=== PATIENT | male | born 1995 | race African-American/Black ===

== ENCOUNTER 2018-03-02 04:52 | Emergency (ER) | payer SELFPAY ==
[~2018-03-02] VITALS: Ht 167.6 cm; Wt 54.4 kg
[2018-03-02 04:59] VITALS: Ht 167.6 cm; Wt 54.4 kg
[2018-03-02 05:54] LABS: APPEARANCE HAZY (CLEAR); BILIRUBIN NEGATIVE (NEGATIVE); COLOR YELLOW (YELLOW); GLUCOSE NEGATIVE (NEGATIVE); KETONE NEGATIVE (NEGATIVE); NITRITE NEGATIVE (NEGATIVE); PROTEIN NEGATIVE (NEGATIVE); UROBILINOGEN NORMAL (NORMAL)
[2018-03-02 05:55] LABS: BACTERIA FEW /hpf (NONE SEEN); EPITHELIAL CELLS 0-5 /hpf (0-5); RED CELLS - URINE 0-5 /hpf (0-5)
[2018-03-02 07:17] VITALS: BP 144/83
[2018-03-03] MEDS ORDERED: DOXYCYCLINE HY100 M2 PO (12:43)
[2018-03-03] MEDS ORDERED: NAPROSYN500 MG PO (12:43)
[2018-03-04 12:17] LABS: CHLAMYDIA TRACHOMATIS, NAA Positive (Negative)
== END 2018-03-02 07:18 | disposition home or self-care (01) ==
LOC: D.ER 04:52
PROVIDERS: Family Medicine
DX: N34.2 Other urethritis (principal)

== ENCOUNTER 2018-03-03 11:12 | Emergency (ER) | payer MEDICAID ==
[~2018-03-03] VITALS: Ht 167.6 cm; Wt 63.6 kg
[2018-03-03 11:18] VITALS: Ht 167.6 cm; Wt 63.6 kg
[2018-03-03 12:13] LABS: APPEARANCE CLEAR (CLEAR); BILIRUBIN NEGATIVE (NEGATIVE); COLOR YELLOW (YELLOW); EPITHELIAL CELLS OCC /hpf (0-5); GLUCOSE NEGATIVE (NEGATIVE); KETONE NEGATIVE (NEGATIVE); NITRITE NEGATIVE (NEGATIVE); PROTEIN NEGATIVE (NEGATIVE); SPECIFIC GRAVITY 1.015 (1.005-1.020); UROBILINOGEN NORMAL (NORMAL); WHITE CELLS - URINE 0-5 /hpf (0-5)
[2018-03-03] MEDS ORDERED: DOXYCYCLINE HY100 M2 PO (12:43)
[2018-03-03] MEDS ORDERED: NAPROSYN500 MG PO (12:43)
[2018-03-03 13:36] VITALS: BP 127/65
[2018-03-05 21:06] LABS: CHLAMYDIA TRACHOMATIS, NAA Positive (Negative)
== END 2018-03-03 13:36 | disposition home or self-care (01) ==
LOC: D.ER 11:12
PROVIDERS: Family Medicine
DX: N45.1 Epididymitis (principal); F17.200 Nicotine dependence, unspecified, uncomplicated

== ENCOUNTER 2019-01-27 10:44 | Emergency (ER) | payer SELFPAY ==
[~2019-01-27] VITALS: Ht 167.6 cm; Wt 53.6 kg
[~2019-01-27 10:44] MED LIST: DOXYCYCLINE HY100 M2 PO; NAPROSYN500 MG PO
[2019-01-27 10:59] VITALS: Ht 167.6 cm; Wt 53.6 kg
[2019-01-27 11:27] LABS: BASOPHILS 0.8 % (0-2); EOSINOPHILS 4.7 % (0-7); HEMATOCRIT 41.2 % (42.0-54.0); HEMOGLOBIN 14.1 g/dL (13.5-17.5); IMMATURE GRANULOCYTES 0.2 % (0-5); MCH 29.7 pg (26.0-34.0); MCHC 34.2 g/dL (31.0-37.0); MCV 86.7 fL (80.0-100.0); MEAN PLATELET VOLUME 13.5 fL (7.4-10.4); MONOCYTES 7.3 % (2-11); PLATELET COUNT 143 10x3/uL (130-400); RBC 4.75 10x6/uL (4.20-6.10); WBC 6.6 10x3/uL (4.8-10.8)
[2019-01-27 11:43] LABS: ALBUMIN 4.5 g/dL (3.4-5.0); ALKALINE PHOSPHATASE 69 U/L (46-116); ALT (SGPT) 26 U/L (10-68); CALC OSMOLALITY 280 mosm/kg (275-300); CALCIUM 9.3 mg/dL (8.5-10.1); CARBON DIOXIDE 29.7 mmol/L (21.0-32.0); CHLORIDE - SERUM 106 mmol/L (98-107); GLUCOSE 79 mg/dL (74-106); POTASSIUM - SERUM 3.5 mmol/L (3.5-5.1); PROTEIN - SERUM 7.7 g/dL (6.4-8.2); SODIUM 142 mmol/L (136-145); UREA NITROGEN 10 mg/dL (7-18); eGFR NON AFRICAN AMERICAN > 90 mL/min (90-120)
[2019-01-27 11:46] LABS: UDS - AMPHET NEGATIVE QUAL (NEGATIVE); UDS - BARB NEGATIVE QUAL (NEGATIVE); UDS - BENZO NEGATIVE QUAL (NEGATIVE); UDS - COCAINE NEGATIVE QUAL (NEGATIVE); UDS - OPIATE NEGATIVE QUAL (NEGATIVE); UDS - PCP NEGATIVE QUAL (NEGATIVE); UDS - THC POSITIVE QUAL (NEGATIVE)
[2019-01-27 11:52] LABS: APPEARANCE CLEAR (CLEAR); BILIRUBIN NEGATIVE (NEGATIVE); COLOR YELLOW (YELLOW); GLUCOSE NEGATIVE (NEGATIVE); KETONE NEGATIVE (NEGATIVE); NITRITE NEGATIVE (NEGATIVE); PROTEIN NEGATIVE (NEGATIVE); SPECIFIC GRAVITY 1.005 (1.005-1.020)
[2019-01-27 11:53] LABS: BACTERIA FEW /hpf (NONE SEEN); EPITHELIAL CELLS RARE /hpf (0-5); RED CELLS - URINE RARE /hpf (0-5); WHITE CELLS - URINE RARE /hpf (0-5)
--- NOTE | 2019-01-27 11:58 | NUR ---
DR. MUSE NOTIFIED AND SITTER ORDERED. SITTER IN LINE OF SIGHT. NOTIFIED CHARGE NURSE AND ATTENDING IN REGARDS TO ASSESSMENT FINDINGS. RESOURCES GIVEN TO PT AND SAFETY PLAN INTIATED.
[2019-01-27] MEDS ORDERED: VISTARIL50 MG PO (16:42)
[2019-01-27 17:22] VITALS: BP 128/73
--- NOTE | 2019-01-28 12:02 | CN ---
PATIENT NAME:TWAN GRANGER MEDICAL RECORD: [id number] : 89 LOCATION:[facility] ADMIT DATE: ACCOUNT: [id number] CONSULTING PHYSICIAN: SHAYY MUSE MD REFERRING PHYSICIAN: LYRIC SALES MD DATE OF CONSULTATION: 01/27/2019 IDENTIFYING DATA: The patient is 23 years old and he is admitted to the Emergency Room on a voluntary basis. CHIEF COMPLAINT: Anxiety. HISTORY OF PRESENT ILLNESS: The patient presented to the Emergency Room because he was having overwhelming feelings of anxiety. He says that he saw a psychiatrist in [place], [place] in the past and that he was diagnosed with panic disorder. He says the psychiatrist prescribed Xanax for him and that it was helpful, but he discontinued taking it because he was concerned about addiction. He denies drug and alcohol abuse. As part of a routine questionnaire administered to all patients, he had answered that he has had some suicidal thoughts in the recent past. Indeed, he did have a suicide attempt at age 15, but since then he has had no suicide attempts. He says that he has been under a lot of stress and that the thought of hurting himself is crossed his mind, but not in any serious way. He regrets answering the questionnaire the way he did and says that he absolutely has no thoughts of harming himself. A woman who identifies herself as his is with him and she concurs that he is not acutely dangerous. The patient denies neurovegetative depressive symptoms and appears to simply have complaints related to anxiety. MENTAL STATUS EXAMINATION: The patient is awake, alert and oriented to person, place, time and situation. His mood is euthymic. His affect appropriate. Thought processes are logical and goal directed. Memory, concentration, and abstraction abilities are intact. He denies any active intent to harm himself or others as well as any overt psychotic symptoms. ASSESSMENT: Anxiety disorder by history. PLAN: The patient is not wanting any kind of inpatient or residential mental health treatment nor does he need it. I do not view him as an acute risk. I think he is a little below average intelligence and far below average in his ability to regulate his own emotions and I think he was answering questions in an overly dramatic way that did not reflect his true intentions. He is not acutely dangerous to himself or others. I do not view him as a significant or high risk for self-harm. Anxiety disorders in and of themselves due place individuals at risk for suicide, based upon the chronic difficulties that they cause; however, he is very interested in going to outpatient mental health and I am recommending that he have a follow up with the [facility]. I am pleased that he is wanting to avoid benzodiazepines and I do not recommend that they be something used to treat his condition. TRANSINT:[id number] Voice Confirmation ID: [id number] DOCUMENT ID: [id number] CONSULT REPORT [id number] TWAN GRANGER PETER MD at 1202 CC: [id number] DICTATION DATE: 01/27/19 165 HANDLE ASSEMBLER: 01/27/19 182 DEP ER 01/27/19 [facility] [address] [place] [address]
== END 2019-01-27 17:23 | disposition home or self-care (01) ==
LOC: D.ER 10:44
PROVIDERS: Family Medicine
DX: F41.9 Anxiety disorder, unspecified (principal)

== ENCOUNTER 2020-11-05 11:43 | Emergency (ER) | payer BC ==
[~2020-11-05] VITALS: Ht 167.6 cm; Wt 56.8 kg
[~2020-11-05 11:43] MED LIST changes: +OMEPRAZOLE20 M1 PO; +VISTARIL50 MG PO
[2020-11-05 11:51] VITALS: Ht 167.6 cm; Wt 56.8 kg
[2020-11-05 14:15] VITALS: BP 120/64
== END 2020-11-05 14:16 | disposition home or self-care (01) ==
LOC: D.ER 11:43
DX: J02.9 Acute pharyngitis, unspecified (principal)